=== PATIENT | female | born 1955 | race Caucasian/White ===

== ENCOUNTER 2019-06-24 17:32 | Emergency (ER) | payer SELFPAY ==
[~2019-06-24] VITALS: Ht 162.6 cm; Wt 90.0 kg
[2019-06-24 18:51] LABS: CLARITY URINE CLEAR (CLEAR); COLOR URINE YELLOW (YELLOW); KETONES URINE NEGATIVE (NEGATIVE); LEUKOCYTE ESTERASE URINE 3+ (NEGATIVE); NITRITE URINE NEGATIVE (NEGATIVE); OCCULT BLOOD URINE NEGATIVE (NEGATIVE); PROTEIN URINE NEGATIVE (NEGATIVE); SPECIFIC GRAVITY URINE 1.014 (1.005-1.030); UROBILINOGEN URINE 0.2 E.U./dL (0.2-1.0)
[2019-06-24] MEDS ORDERED: MAGNESIUM/ALUMINUM HYDROXIDE/SIMETHICONE 30ML UDC PO STA (18:55)
[2019-06-24] MEDS ORDERED: VISCOUS LIDOCAINE 2% 15 ML UDC PO STA (18:55)
[2019-06-24] MEDS ORDERED: IBUPROFEN 400MG TABLET PO ONE (19:00)
[2019-06-24] MEDS ORDERED: FAMOTIDINE 20MG TABLET PO ONE (19:00)
[2019-06-24 19:10] LABS: BASOPHILS % 1.1 % (0.0-2.0); HEMATOCRIT. 40.6 % (36.0-48.0); HEMOGLOBIN. 13.8 g/dL (12.0-16.0); LYMPHOCYTES % 35.5 % (20.0-50.0); MEAN CORPUSCULAR HEMOGLOBIN 30.3 pg (28.0-32.0); MEAN CORPUSCULAR VOLUME 89.2 fL (81.0-99.0); MEAN PLATELET VOLUME 10.6 fl (7.4-10.4); MONOCYTES % 5.4 % (2.0-8.0); PLATELET 202 x1000/uL (130-400); RED BLOOD CELL COUNT 4.55 mill/uL (4.2-5.4); RED CELL DISTRIBUTION WIDTH 13.7 % (11.6-14.6)
[2019-06-24 19:17] LABS: CHLORIDE 107 mEq/L (98-107)
[2019-06-24] MEDS ORDERED: LIDOCAINE HCL 1% 20ML VIAL (Pyxis) INJ INFIL ONE (19:45)
[2019-06-24] MEDS ORDERED: CEFTRIAXONE SODIUM 1 G/VIAL IM ONE (19:45)
[2019-06-24 20:27] VITALS: BP 129/71
== END 2019-06-24 20:50 | disposition home or self-care (01) ==
LOC: ER 17:32
DX: N12 Tubulo-interstitial nephritis, not specified as acute or chronic (principal); N64.4 Mastodynia; D27.1 Benign neoplasm of left ovary; K29.70 Gastritis, unspecified, without bleeding; Z90.49 Acquired absence of other specified parts of digestive tract; Z98.51 Tubal ligation status; Z98.890 Other specified postprocedural states
CPT/HCPCS: 36415; 74176; 80053; 81003; 83690; 85025; 87086; 96372; 99284; J0696; J3490